=== PATIENT | female | born 1980 | race Caucasian/White ===

== ENCOUNTER 2023-06-10 14:14 | Emergency (ER) | payer BC, SELFPAY ==
[2023-06-10] VITALS (61 sets, daily range): BP systolic 117–150; BP diastolic 67–99; PULSE 76–104; RESP 16–20; TEMP 36.6–37; O2SAT 96–100; BMI 25.8
--- NOTE | 2023-06-10 15:16 | ED_ITS ---
HPI - SOB/Dyspnea General Date Seen: 06/10/23 Chief Complaint: Shortness of Breath/Dyspnea Stated Complaint: shortness of breath Time Seen by Provider: 06/10/23 14:23 Source: patient Mode of arrival: ambulatory Limitations: no limitations History of Present Illness HPI Narrative: Patient is a 43-year-old female with no pertinent medical problems presenting to the emergency department for palpitation and shortness of breath. She states for the past 4 days she will have intermittent episodes of shortness of breath followed by palpitations. She states these are happening multiple times a day. She is scheduled to see primary care next week but she was called back by them today and told to come to the emergency department to be evaluated if symptoms are persisting. Since she still occasionally have a symptoms she came to the emergency department. She is currently asymptomatic. She states the shortness of breath starts 1st and then she will feel her heart rate pounding. She states see my has had symptoms like this before but only occasionally every several months. It is happening much more frequently now. She is not on any control. No history of recent surgeries, cancer, injuries. She has no history of blood clots. She denies abdominal pain, headache, vision changes, lightheadedness, dizziness, diarrhea, constipation, weakness, numbness. Related Data Home Medications Medication Instructions Recorded Confirmed No Known Home Medications 06/10/23 06/10/23 Allergies Allergy/AdvReac Type Severity Reaction Status Date / Time No Known Drug Allergies Allergy Verified 06/10/23 14:35 Review of Systems Status of ROS: Reports: 10 or more systems reviewed and unremarkable except as noted in History and below PFSH PFSH Social History Smoking Status: Heavy tobacco smoker What tobacco products do you use: cig arettes Smoking packs per day: 0.25 Smoking cigarettes per day: 5.0 Years smoked: 25 Smoking pack-years: 6.25 Do you use any of these nicotine containing products: None Second hand tobacco smoke exposure: No How often do you have a drink containing alcohol: 2-3 times a week How many standard drinks containing alcohol do you have on a typical day: 1 or 2 AUDIT-C Alcohol total score: 3 Non-prescribed substance use: denies use Exam Narrative: Exam Narrative: Const: Well-nourished, Well-developed, in no distress Eyes: PERRL, no conjunctival injection, and symmetrical lids HENT: Atraumatic external nose and ears. Moist mucous membranes. Neck: Symmetric, trachea midline, No thyromegaly. CVS: RRR, No murmurs or gallops. Peripheral pulses 2+ and equal in all extremities RESP: Unlabored respiratory effort. Clear to auscultation bilaterally. GI: Nontender/Nondistended, No rebound or guarding. MSK:Extremities w/o deformity, Normal Active ROM Skin: Warm, Dry. No rashes or lesions. Neuro: Normal Muscle tone, No focal neurological deficits. Psych: Awake, Alert, & Oriented x3. Appropriate mood and affect. Const: Vital Signs, click to edit/add: Vital Signs - 24 hr 06/10/23 18:41 06/10/23 18:45 06/10/23 18:51 Temperature Pulse Rate 82 81 90 Respiratory Rate Blood Pressure 127/80 126/77 Pulse Oximetry 100 99 99 06/10/23 18:55 06/10/23 18:56 06/10/23 19:00 Temperature 98.2 F Pulse Rate 82 84 82 Respiratory Rate 20 Blood Pressure 127/76 127/76 Pulse Oximetry 98 99 99 06/10/23 19:01 06/10/23 19:15 06/10/23 19:17 Temperature Pulse Rate 85 87 83 Respiratory Rate Blood Pressure 122/72 132/75 Pulse Oximetry 98 98 99 06/10/23 19:30 06/10/23 19:31 06/10/23 19:32 Temperature Pulse Rate 91 86 83 Respiratory Rate Blood Pressure 134/75 Pulse Oximetry 98 97 98 06/10/23 19:45 06/10/23 19:46 06/10/23 19:47 Temperature Pulse Rate 83 81 80 Respiratory Rate Blood Pressure 117/67 Pulse Oximetry 97 98 06/10/23 19:55 06/10/23 20:00 06/10/23 20:01 Temperature 98.2 F Pulse Rate 82 76 Respiratory Rate Blood Pressure 124/74 Pulse Oximetry 96 99 06/10/23 20:02 06/10/23 20:15 06/10/23 20:16 Temperature Pulse Rate 76 81 83 Respiratory Rate Blood Pressure 125/82 Pulse Oximetry 98 99 99 06/10/23 20:30 06/10/23 20:31 06/10/23 20:39 Temperature 98.2 F Pulse Rate 86 89 Respiratory Rate Blood Pressure 122/80 Pulse Oximetry 98 98 Course Vital Signs Vital signs: Initial Vital Signs Temperature 97.9 F 06/10/23 14:32 Temperature Source Temporal Artery Scan 06/10/23 14:32 Pulse Rate 104 H 06/10/23 14:32 Respiratory Rate 18 06/10/23 14:32 Blood Pressure 150/99 H 06/10/23 14:32 Blood Pressure Mean 116 H 06/10/23 14:32 Blood Pressure Position Sitting 06/10/23 14:32 Pulse Oximetry 100 06/10/23 14:32 Oxygen Delivery Method Room Air 06/10/23 14:32 Vital Signs Temperature 97.9 F 06/10/23 14:32 Pulse Rate 104 H 06/10/23 14:32 Respiratory Rate 18 06/10/23 14:32 Blood Pressure 150/99 H 06/10/23 14:32 Pulse Oximetry 100 06/10/23 14:32 Oxygen Delivery Method Room Air 06/10/23 14:32 Temperature 98.2 F 06/10/23 20:39 Pulse Rate 89 06/10/23 20:31 Respiratory Rate 20 06/10/23 18:55 Blood Pressure 122/80 06/10/23 20:31 Pulse Oximetry 98 06/10/23 20:31 Oxygen Delivery Method Room Air 06/10/23 18:14 MDM - SOB/Dyspnea MDM Narrative Medical decision making narrative: Patient is a 43-year-old female presenting to the emergency department for shortness of breath. Symptoms have been going on for few days now. She has also been associated episodes of tachycardia. When she 1st arrived her heart rate was 104. I cannot PERC her out at this time and a D-dimer was ordered. Also ordered EKG, troponin, CBC, BMP, COVID/flu/RSV, magnesium. Chest x-ray order to look for signs of pneumonia or pneumothorax. Patient's D-dimer is within normal limits in PE is unlikely. Patient's CBC returned with hemoglobin 6.1. This does not appear to be diluted. She states she has no history of anemia. Denies hematochezia or melena. Last period was 3 weeks ago. denies lightheadedness or dizziness at this time. Unsure why she is anemic but will give her a unit of blood into a type and screen. Did a stool occult test. BMP magnesium showing no concerning findings. Troponin within normal limits. EKG shows no concerning findings. I am unsure why she is anemic at this time. Patient's COVID/flu/RSV test was negative. Patient signed out to my colleague Dr. davis pending blood transfusion. She otherwise looks well at this time I believe she is safe for discharge as long as no other concerning findings return. Lab Data Labs: Lab Results 06/10/23 06/10/23 06/10/23 Range/Units 15:13 15:30 16:08 WBC 4.73 (4.50-11.00) K/uL RBC 3.90 L (4.00-5.20) m/uL Hgb 6.1 L* (12.0-16.0) gm/dL Hct 22.6 L (33.0-51.0) % MCV 58 L (80-100) fL MCH 16 L (26-34) pg MCHC 27 L (32-36) gm/dL RDW Coeff of Lenny 21.3 H (11.5-15.5) % Plt Count 553 H (140-440) K/uL Neut % (Auto) 58.9 (42.0-72.0) % Lymph % (Auto) 31.9 (20-44) % [place] % (Auto) 8.2 (0.0-11.0) % Eos % (Auto) 0.4 (0.0-7.0) % Baso % (Auto) 0.4 (0.0-3.0) % Neut # (Auto) 2.78 (1.7-7.0) K/uL Lymph # (Auto) 1.51 (0.90-2.90) K/uL [place] # (Auto) 0.40 (0.00-0.90) K/UL Eos # (Auto) 0.02 (0.00-0.50) K/uL Baso # (Auto) 0.02 (0.00-0.30) K/uL Abs Immat Gran (auto) 0.01 (0.00-0.30) K/uL Imm/Tot Granulo (auto) 0.2 % D-Dimer Quant (PE/DVT) < 0.27 (0.00-0.50) ug/ml Sodium 137 (135-149) mmol/L Potassium 3.6 (3.6-5.1) mmol/L Chloride 106 (96-114) mmol/L Carbon Dioxide 21 (20-32) mmol/L Anion Gap 10 (7-15) mEq/L BUN 8 (5-24) mg/dL Creatinine 0.6 (0.5-1.5) mg/dL Estimated Creat Clear 115.51 Estimated GFR 116 ml/min Glucose 109 (60-115) mg/dL Calcium 8.8 (8.4-10.6) mg/dL Magnesium 2.1 (1.5-2.6) mg/dL Stool Occult Blood (Negative) SARS-CoV-2 (PCR) Negative SARS-CoV-2 (Negative) Influenza Type A (PCR) Negative PCR FLU A (Negative) Influenza Type B (PCR) Negative PCR FLU B (Negative) RSV (PCR) Negative PCR RSV (Negative) POC Troponin I 0.00 L (0.01-0.04) ng/ml Blood Type B Positive Antibody Screen NEGATIVE Crossmatch (AHG) See Detail 06/10/23 Range/Units 16:16 WBC (4.50-11.00) K/uL RBC (4.00-5.20) m/uL Hgb (12.0-16.0) gm/dL Hct (33.0-51.0) % MCV (80-100) fL MCH (26-34) pg MCHC (32-36) gm/dL RDW Coeff of Lenny (11.5-15.5) % Plt Count (140-440) K/uL Neut % (Auto) (42.0-72.0) % Lymph % (Auto) (20-44) % [place] % (Auto) (0.0-11.0) % Eos % (Auto) (0.0-7.0) % Baso % (Auto) (0.0-3.0) % Neut # (Auto) (1.7-7.0) K/uL Lymph # (Auto) (0.90-2.90) K/uL [place] # (Auto) (0.00-0.90) K/UL Eos # (Auto) (0.00-0.50) K/uL Baso # (Auto) (0.00-0.30) K/uL Abs Immat Gran (auto) (0.00-0.30) K/uL Imm/Tot Granulo (auto) % D-Dimer Quant (PE/DVT) (0.00-0.50) ug/ml Sodium (135-149) mmol/L Potassium (3.6-5.1) mmol/L Chloride (96-114) mmol/L Carbon Dioxide (20-32) mmol/L Anion Gap (7-15) mEq/L BUN (5-24) mg/dL Creatinine (0.5-1.5) mg/dL Estimated Creat Clear Estimated GFR ml/min Glucose (60-115) mg/dL Calcium (8.4-10.6) mg/dL Magnesium (1.5-2.6) mg/dL Stool Occult Blood Negative (Negative) SARS-CoV-2 (PCR) (Negative) Influenza Type A (PCR) (Negative) Influenza Type B (PCR) (Negative) RSV (PCR) (Negative) POC Troponin I (0.01-0.04) ng/ml Blood Type Antibody Screen Crossmatch (AHG) ECG Data Attestation: I personally reviewed and interpreted this ECG as follows: Prior ECG tracings: not available for review Interpretation: Normal sinus rhythm with a rate of 88 beats per minute, normal intervals, normal axis, no ST or T-wave abnormalities Discharge Plan Discharge Clinical Impression: Anemia Qualifiers: Anemia type: unspecified type Qualified Code(s): D64.9 - Anemia, unspecified Patient Disposition: Home, Self-Care Condition: Improved Instructions: Anemia (ED) Additional Instructions: Call your primary care provider tomorrow morning to see they can move up your appointment. Return to emergency department for new or worsening symptoms. Several things can cause anemia with the most emergent cause would be of no SOB noticed any bloody stool or vomiting blood return to the emergency department immediately Prescriptions: No Action No Known Home Medications Follow Up/Referrals: Enedelia Gonzalez PA-C [Referring] - Stand Alone Forms: [facility] Info Instructions
--- NOTE | 2023-06-10 15:24 | XR_ITS ---
Final Report Patient: ERNESTO PALMA Facility:?[facility] Patient ID:?[id number] Site Patient ID:?[id number]. Site :?[id number] Study:?XRay Chest 2V-06/10/2023 3:42:45 PM Ordering Physician:?DR. PEREZ Final Report: INDICATION: Shortness of breath. TECHNIQUE: Chest 2 views. COMPARISON: None. FINDINGS: Cardiovascular and mediastinum: Heart size and vasculature are normal in caliber and appearance. Lungs and pleural spaces: Lungs are clear. No sign of infiltrate or mass. No sign of pleural effusion. No pneumothorax. Bones and soft tissues: No significant findings. IMPRESSION: No acute or significant findings. Dictated by Raul Baird MD @ 06/10/2023 4:19:04 PM (Electronic Signature)
[2023-06-10 15:41] LABS: Basophils Absolute Auto 0.02 K/uL (0.00-0.30); Basophils Percent Auto 0.4 % (0.0-3.0); Eosinophils Absolute Auto 0.02 K/uL (0.00-0.50); Eosinophils Percent Auto 0.4 % (0.0-7.0); Hematocrit 22.6 % (33.0-51.0); Immature Granulocytes Abs Auto 0.01 K/uL (0.00-0.30); Immature Granulocytes Pct Auto 0.2 %; Lymphocytes Absolute Auto 1.51 K/uL (0.90-2.90); Lymphocytes Percent Auto 31.9 % (20-44); Mean Corpuscular HGB Conc 27 gm/dL (32-36); Mean Corpuscular Hemoglobin 16 pg (26-34); Mean Corpuscular Volume 58 fL (80-100); Monocytes Percent Auto 8.2 % (0.0-11.0); Neutrophils Absolute Auto 2.78 K/uL (1.7-7.0); Neutrophils Percent Auto 58.9 % (42.0-72.0); RDW Coefficient of Variation % 21.3 % (11.5-15.5); White Blood Count* 4.73 K/uL (4.50-11.00)
[2023-06-10 15:56] LABS: Hemoglobin* 6.1 gm/dL (12.0-16.0); Slide Review Reflex No
[2023-06-10 16:01] LABS: Chloride* 106 mmol/L (96-114); Potassium* 3.6 mmol/L (3.6-5.1); Sodium* 137 mmol/L (135-149)
[2023-06-10 16:04] LABS: Anion Gap 10 mEq/L (7-15); Blood Urea Nitrogen* 8 mg/dL (5-24); Carbon Dioxide* 21 mmol/L (20-32); Creatinine* 0.6 mg/dL (0.5-1.5); Est. Creatinine Clearance* 115.51; Estimated Glomerular Filt Rate 116 ml/min; Glucose* 109 mg/dL (60-115)
[2023-06-10 16:05] LABS: Calcium* 8.8 mg/dL (8.4-10.6); Magnesium* 2.1 mg/dL (1.5-2.6)
[2023-06-10 16:07] LABS: D Dimer Quantitative* < 0.27 ug/ml (0.00-0.50)
[2023-06-10 16:20] LABS: PCR FLU A Negative PCR FLU A (Negative); PCR FLU B Negative PCR FLU B (Negative); PCR RSV Negative PCR RSV (Negative); SARS PCR* Negative SARS-CoV-2 (Negative)
[2023-06-10 16:36] LABS: Platelet Count* 553 K/uL (140-440)
[2023-06-10 17:03] LABS: Fecal Occult Blood* Negative (Negative)
--- NOTE | 2023-06-10 18:59 | ED.NURSE ---
critical hbg of 6.1, MD aware. 1 unit of RBC ordered, started infusing without any complications. Vitally stable.
== END 2023-06-10 20:52 | disposition home or self-care (01) ==
PROVIDERS: Student in an Organized Health Care Education/Training Program; Emergency Provider Emergency Medicine; PCP Family Medicine
DX: D64.9 Anemia, unspecified (principal)
CPT/HCPCS: 36415; 36430; 71046; 80048; 82270; 83735; 84484; 85025; 85379; 86850; 86900; 86901; 86922; 87631; 99284; P9016